=== PATIENT | male | born 1985 | race Caucasian/White ===

== ENCOUNTER 2016-09-06 17:39 | Emergency (ER) | payer BC ==
[~2016-09-06] VITALS: Ht 185.4 cm; Wt 90.7 kg
[~2016-09-06 17:39] MED LIST: DOXY100C2 PO; HYDR-3419 PO; IBUP1CAP9
[2016-09-06 17:43] VITALS: Ht 185.4 cm; Wt 90.7 kg
[2016-09-06] MEDS ORDERED: DEXT1CAP36 PO (19:36)
[2016-09-06] MEDS ORDERED: SODIUM CHLORIDE 0.9% 1000ML 1,000 ML IV STA (19:47)
[2016-09-06] MEDS ORDERED: KETOROLAC TROMETHAMINE 30 MG/ML VIAL IV STA (19:47)
[2016-09-06 19:58] LABS: BASO % 0.4 %; BASO ABS # 0.03 K/uL (0-0.2); COMPLETE YES; EOS % 0.1 %; HEMATOCRIT 45.1 % (42-52); IG% 0.5 %; LYMPH ABS # 1.42 K/uL (1.2-3.4); MEAN CELL VOLUME 83.2 fL (80-100); MEAN CORPUSCULAR HEMOGLOBIN 30.6 pg (25-34); MEAN CORPUSCULAR HGB CONC 36.8 g/dl (32-36); MEAN PLATELET VOLUME 9.5 fL (7.4-10.4); MONO % 10.5 %; NEUT % 71.5 %; PLATELET COUNT 162 K/uL (130-400); RED BLOOD COUNT 5.42 M/uL (4.7-6.1); WHITE BLOOD COUNT 8.36 K/uL (4.8-10.8)
[2016-09-06 20:05] LABS: BUN/CREATININE RATIO 5.9 (10-20); CALCIUM 8.6 mg/dl (8.5-10.1); POTASSIUM 3.8 mmol/L (3.5-5.1)
--- NOTE | 2016-09-06 21:19 | DIAGNOSTIC IMAGING REPORT ---
TWO VIEW CHEST CLINICAL HISTORY: Cough. Fever. Chest congestion. FINDINGS: PA and lateral chest radiographs are obtained. No prior studies are available for comparison at the time of dictation. The cardiomediastinal silhouette is unremarkable. An accessory azygous fissure is incidentally noted. Bibasilar patchy airspace opacities are identified. These are best seen on the lateral projection. No pleural effusion is seen. There is no pneumothorax. The bony thorax appears intact. IMPRESSION: Patchy bibasilar airspace opacities are identified. This likely represents an infectious/inflammatory pneumonitis given the clinical history. Electronically signed by: Clark Gay M.D. 09/06/2016 9:17 PM Dictated Date/Time: 09/06/2016 9:15 PM
[2016-09-06 21:28] VITALS: TEMP 39.1
[2016-09-06] MEDS ORDERED: LEVOFLOXACIN 500 MG TAB PO STA (21:58)
[2016-09-06] MEDS ORDERED: ALBUTEROL HFA 8 GM INHALER INH STA (22:01)
[2016-09-06] MEDS ORDERED: LEVO-366 PO (22:03)
[2016-09-06] MEDS ORDERED: HYDR5SYP11 PO (22:03)
[2016-09-06] MEDS ORDERED: LEVOFLOXACIN 250 MG TAB ONE (22:10)
[2016-09-06] MEDS ORDERED: HYCODAN 60ML BOTTLE HOMEPACK PO ONE (22:15)
[2016-09-06 22:24] VITALS: BP 122/74; PULSE 87; O2SAT 95
--- NOTE | 2016-09-06 23:23 | EMERGENCY ROOM VISIT NOTE ---
History First contact with patient: 19:10 Chief Complaint: FLU LIKE SX Stated Complaint: FEVER, SOB, HEADACHE, COUGH, CONGESTION History of Present Illness The patient is a 31 year old male who presents to the Emergency Room with complaints of progressively worsening upper respiratory symptoms. The patient reports that he developed symptoms 6 days ago. Over the past few days, he has had shortness of breath, wheezing and productive cough. He also reports headache and fever. His highest temperature today was 102F. He has had a fever since last Saturday. His cough is productive of greenish phlegm. He denies any known sick contacts. He denies any prior history of asthma or other lung disease. He denies tobacco use. He rates his overall discomfort an 8 out of 10. Review of Systems 10 system review was performed and was negative except for pertinent positives and negatives as indicated in history of present illness Past Medical/Surgical History Medical Problems: (1) Umbilical hernia Family History Unremarkable Social History Smoking Status: Never Smoker Alcohol Use: occasionally Marital Status: Occupation Status: employed Current/Historical Medications Scheduled Levofloxacin (Levaquin), 500 MG PO DAILY Scheduled PRN Dextromethorphan-Phenylephrine (Day Time Multi-Symptom Co), 2 CAP PO DIRECTED PRN for Cough Hydrocodone W/ Homatropine (Hycodan 5/1.5MG 5 Ml), 5-10 ML PO Q4H PRN for Cough Allergies Coded Allergies: No Known Allergies (Unverified , 09/06/16) Physical Exam Vital Signs Date Time Temp Pulse Resp B/P Pulse Ox O2 Delivery O2 Flow Rate FiO2 09/06/16 22:24 87 18 122/74 95 09/06/16 21:28 39.1 91 18 117/69 94 Room Air 09/06/16 19:31 97 18 122/67 96 Room Air 09/06/16 17:43 39.2 105 18 124/85 99 Room Air Pain Rating (0-10): 6.0 Physical Exam CONSTITUTIONAL: Healthy and well nourished. Alert and oriented X 3 with positive affect. HEENT: Normocephalic, atraumatic. Pupils equal, round and reactive. Ears and nares are clear. No rhinorrhea. No scleral icterus or conjunctival injection. OROPHARYNX: Mucous membranes are moist. No tonsillar hypertrophy or exudates. NECK: Full active range of motion without discomfort. RESPIRATORY: Patient has bilateral expiratory wheezing without obvious crackles , rhonchi or stridor. CARDIOVASCULAR: Regular rate and rhythm with no murmurs, rubs or gallops. GASTROINTESTINAL: Bowel sounds present in all quadrants. Soft and nontender to palpation. MUSCULOSKELETAL: Full range of motion of all joints without discomfort. INTEGUMENTARY: No rash or other significant dermatologic conditions noted. NEUROLOGIC: No focal neurologic deficits noted. Medical Decision & Procedures ER Provider Diagnostic Interpretation: Two-view chest x-ray shows patchy bibasilar airspace opacities. No pneumothorax or widened mediastinum. Radiologist report is as follows: TWO VIEW CHEST CLINICAL HISTORY: Cough. Fever. Chest congestion. FINDINGS: PA and lateral chest radiographs are obtained. No prior studies are available for comparison at the time of dictation. The cardiomediastinal silhouette is unremarkable. An accessory azygous fissure is incidentally noted. Bibasilar patchy airspace opacities are identified. These are best seen on the lateral projection. No pleural effusion is seen. There is no pneumothorax. The bony thorax appears intact. IMPRESSION: Patchy bibasilar airspace opacities are identified. This likely represents an infectious/inflammatory pneumonitis given the clinical history. Laboratory Results 09/06/16 19:10 Red Blood Count 5.42, Mean Corpuscular Volume 83.2, Mean Corpuscular Hemoglobin 30.6, Mean Corpuscular Hemoglobin Concent 36.8, Mean Platelet Volume 9.5, Neutrophils (%) (Auto) 71.5, Lymphocytes (%) (Auto) 17.0, Monocytes (%) (Auto) 10.5, Eosinophils (%) (Auto) 0.1, Basophils (%) (Auto) 0.4, Neutrophils # (Auto ) 5.98, Lymphocytes # (Auto) 1.42, Monocytes # (Auto) 0.88, Eosinophils # (Auto ) 0.01, Basophils # (Auto) 0.03 09/06/16 19:10 Test 09/06/16 19:10 09/06/16 19:15 09/06/16 20:08 White Blood Count 8.36 K/uL (4.8-10.8) Red Blood Count 5.42 M/uL (4.7-6.1) Hemoglobin 16.6 g/dL (14.0-18.0) Hematocrit 45.1 % (42-52) Mean Corpuscular Volume 83.2 fL (80-100) Mean Corpuscular Hemoglobin 30.6 pg (25-34) Mean Corpuscular Hemoglobin Concent 36.8 g/dl (32-36) Platelet Count 162 K/uL (130-400) Mean Platelet Volume 9.5 fL (7.4-10.4) Neutrophils (%) (Auto) 71.5 % Lymphocytes (%) (Auto) 17.0 % Monocytes (%) (Auto) 10.5 % Eosinophils (%) (Auto) 0.1 % Basophils (%) (Auto) 0.4 % Neutrophils # (Auto) 5.98 K/uL (1.4-6.5) Lymphocytes # (Auto) 1.42 K/uL (1.2-3.4) Monocytes # (Auto) 0.88 K/uL (0.11-0.59) Eosinophils # (Auto) 0.01 K/uL (0-0.5) Basophils # (Auto) 0.03 K/uL (0-0.2) RDW Standard Deviation 37.4 fL (36.4-46.3) RDW Coefficient of Variation 12.4 % (11.5-14.5) Immature Granulocyte % (Auto) 0.5 % Immature Granulocyte # (Auto) 0.04 K/uL (0.00-0.02) Erythrocyte Sedimentation Rate 18 mm/hr (0-14) Anion Gap 9.0 mmol/L (3-11) Est Creatinine Clear Calc Drug Dose 120.9 ml/min Estimated GFR () 115.7 Estimated GFR (Non- 99.8 BUN/Creatinine Ratio 5.9 (10-20) Calcium Level 8.6 mg/dl (8.5-10.1) Influenza Type A Antigen Neg for Influ A (NEG) Influenza Type B Antigen Neg for Influ B (NEG) Bedside Lactic Acid Venous 1.21 mmol/L (0.90-1.70) The above labs were reviewed. White count is normal with mild bandemia. No left shift identified. Lactic acid is normal. Influenza screen is negative. Medications Administered Medications (Trade) Dose Ordered Sig/Lynsey Route Start Time Stop Time Status Last Admin Dose Admin Ketorolac Tromethamine 30 mg 30 mg NOW STAT IV 09/06/16 19:47 09/06/16 19:52 DC 3/2/17 20:59 30 MG Sodium Chloride (Nss 1000ml) 1,000 ml @ 999 mls/hr Q1H1M STAT IV 09/06/16 19:47 09/06/16 20:47 DC 09/06/16 19:47 999 MLS/HR Albuterol (Ventolin Hfa Inhaler) 2 puffs ONE STAT INH 09/06/16 22:01 09/06/16 22:02 DC 09/06/16 22:16 2 PUFFS Hydrocodone Bit/ Homatropine Methylb (Hycodan Elix Homepack 5/1.5MG/ 5ML) 1 homepack UD ONCE PO 09/06/16 22:15 09/06/16 22:16 DC 09/06/16 22:16 1 HOMEPACK Levofloxacin (Levaquin Tab) 500 mg STK-MED ONCE .ROUTE 09/06/16 22:10 09/06/16 22:13 DC 09/06/16 22:15 500 MG ED Course Patient history and physical exam were performed. Nurse's notes were reviewed. Vital signs were reviewed, showing a pulse of 105. Oral temperature is 39.2 C. The patient is normotensive. O2 saturation surprisingly is 99% on room air. IV access was established, and labs were drawn. The patient was hydrated with a liter normal saline. He was also administered Toradol 30 mg IVP. Review of labs shows no significant findings. He does not have an elevated white count. Point of care lactic acid is also normal. Influenza screen is also negative. This x-ray shows bilateral bibasilar opacities consistent with pneumonia. The patient was administered Levaquin 500 mg orally. His heart rate was improved to 80 bpm prior to discharge. The patient will be provided a prescription for Levaquin antibiotics. He was dispensed a home pack and prescription for Hycodan cough syrup. He was also dispensed a Ventolin metered- dose inhaler with AeroChamber, and instructions for its use. The patient was instructed to follow-up closely with his PCP, returning to the emergency department over the weekend for any progressively worsening symptoms. The patient and were happy with plan of care, and voiced understanding of all discharge instructions. Medical Decision Impression Primary Impression: Pneumonia Departure Information Dispostion Home / Self-Care Condition GOOD Prescriptions Hydrocodone W/ Homatropine (HYCODAN 5/1.5MG 5 ML) 1 Syp Syp 5-10 ML PO Q4H Y for Cough, #200 ML Prov: Thomas Hinkle PA 09/06/16 Levofloxacin (Levaquin) 500 Mg Tab 500 MG PO DAILY for 6 Days, #6 TAB Prov: Thomas Hinkle PA 09/06/16 Forms HOME CARE DOCUMENTATION FORM, IMPORTANT VISIT INFORMATION Patient Instructions Pneumonia, My [facility] Additional Instructions Finish all Levaquin antibiotics, next dose tomorrow evening. Albuterol 2 puffs every 4 hours for cough. Hycodan cough syrup if needed for worse cough. Do not drink alcohol or drive while taking Hycodan. Ibuprofen 800 mg and/or Tylenol 1000 mg every 8 hours for pain/fever. You may also alternate these medications for more effective relief: Ibuprofen --4 HRS--> Tylenol --4 HRS--> ibuprofen --4 HRS--> Tylenol .... Follow-up with your family doctor in 2-3 days for reevaluation. Return to the emergency department for any progressively worsening symptoms. Problem Qualifiers Primary Impression: Pneumonia Pneumonia type: due to unspecified organism Laterality: bilateral Lung location: lower lobe of lung Qualified Codes: J18.9 - Pneumonia, unspecified organism
== END 2016-09-06 22:25 | disposition home or self-care (01) ==
LOC: C.EDB 17:40
DX: J18.9 Pneumonia, unspecified organism (principal)